=== PATIENT | male | born 1990 | race Caucasian/White ===

== ENCOUNTER 2017-03-17 10:59 | Emergency (ER) | payer OTHER ==
[~2017-03-17] VITALS: Ht 167.6 cm; Wt 90.7 kg
== END 2017-03-17 18:30 ==
LOC: SED 10:59
DX: F11.23 Opioid dependence with withdrawal (principal); T50.7X5A Adverse effect of analeptics and opioid receptor antagonists, initial encounter; Y92.9 Unspecified place or not applicable
CPT/HCPCS: 96372; 99284; J2550; J3486